=== PATIENT | female | born 1960 | race Two or more races ===

== ENCOUNTER 2020-08-07 16:51 | Emergency (ER) | payer MEDICAID ==
[~2020-08-07] VITALS: Ht 154.9 cm; Wt 71.7 kg
[2020-08-07 22:33] VITALS: BP 173/93
== END 2020-08-08 00:08 | disposition home or self-care (01) ==
LOC: ER 16:53
DX: S43.401A Unspecified sprain of right shoulder joint, initial encounter (principal); M17.0 Bilateral primary osteoarthritis of knee; I10 Essential (primary) hypertension; V43.62XA Car passenger injured in collision with other type car in traffic accident, initial encounter; Y93.89 Activity, other specified; Y92.488 Other paved roadways as the place of occurrence of the external cause; Y99.8 Other external cause status
CPT/HCPCS: 73030; 73562